=== PATIENT | female | born 1955 | race Caucasian/White ===

== ENCOUNTER → 2016-04-11 | Outpatient (CLI) | payer BC ==
[~2016-04-11] MED LIST: ASPI1TAB PO; BIOT10005 PO; CIPR500T89 PO; FLAG250T PO; VITA-130 PO; VITA200T4 PO; VITMTA PO
[2016-04-11 17:40] LABS: ANION GAP 8 MEQ/L (8-16); BLOOD UREA NITROGEN 13 MG/DL (7-18); CALCIUM LEVEL 9.3 MG/DL (8.8-10.2); CARBON DIOXIDE LEVEL 30 MEQ/L (21-32); CHLORIDE LEVEL 104 MEQ/L (98-107); CREATININE FOR GFR 0.73 MG/DL (0.55-1.02); GLOMERULAR FILTRATION RATE > 60.0 (>45); GLUCOSE, FASTING 92 MG/DL (80-110); POTASSIUM SERUM 4.1 MEQ/L (3.5-5.1); SODIUM LEVEL 142 MEQ/L (136-145)
== END ==
LOC: M WUC 12:14
PROVIDERS: ATTEND Physician Assistant
DX: I10 Essential (primary) hypertension (principal)

== ENCOUNTER → 2016-09-29 | Outpatient (CLI) | payer BC ==
[~2016-09-29] MED LIST changes: -BIOT10005 PO; +BIOT10008 PO; +CIPR-249 PO; -CIPR500T89 PO; -VITA-130 PO; +VITA500T PO
[2016-09-29 10:26] LABS: ANION GAP 7 MEQ/L (8-16); BLOOD UREA NITROGEN 13 MG/DL (7-18); CALCIUM LEVEL 9.3 MG/DL (8.8-10.2); CARBON DIOXIDE LEVEL 28 MEQ/L (21-32); CHLORIDE LEVEL 108 MEQ/L (98-107); CHOLESTEROL LEVEL 231 MG/DL (<200); CREATININE FOR GFR 0.65 MG/DL (0.55-1.02); FREE T4 0.98 NG/DL (0.76-1.46); GLOMERULAR FILTRATION RATE > 60.0 (>45); GLUCOSE, FASTING 93 MG/DL (80-110); SODIUM LEVEL 143 MEQ/L (136-145); TRIGLYCERIDES LEVEL 40 MG/DL (<150)
== END ==
LOC: M WUC 08:19
PROVIDERS: ATTEND Family Medicine
DX: I10 Essential (primary) hypertension (principal); R63.5 Abnormal weight gain

== ENCOUNTER → 2017-01-13 | Outpatient (CLI) | payer BC ==
[2017-01-14 15:10] LABS: Lyme Disease IgG/IgM Antibodie <0.91 ISR (0.00-0.90); Lyme Disease IgM Ab Quantitati <0.80 index (0.00-0.79)
== END ==
LOC: M WUC 09:57
DX: Z13.89 Encounter for screening for other disorder (principal); W57.XXXA Bitten or stung by nonvenomous insect and other nonvenomous arthropods, initial encounter
CPT/HCPCS: 36415

== ENCOUNTER → 2018-06-20 | Outpatient (CLI) | payer BC ==
[~2018-06-20] MED LIST changes: -ASPI1TAB PO; +ASPI81TA26 PO
[2018-06-20 12:32] LABS: BASO % 0.7 % (0.0-1.0); EOS # 0.2 10^3/uL (0.0-0.50); EOS % 3.1 % (0.0-3.0); HEMOGLOBIN 14.7 g/dl (12.0-15.5); LYMPH # 1.6 10^3/uL (1.5-4.5); LYMPH % 29.2 % (24.0-44.0); MEAN CORPUSCULAR HEMOGLOBIN 31.6 pg (27.0-33.0); MEAN CORPUSCULAR HGB CONC 34.2 g/dl (32.0-36.5); MEAN CORPUSCULAR VOLUME 92.5 fl (80.0-96.0); MONO # 0.4 10^3/uL (0.0-0.8); MONO % 7.8 % (0.0-5.0); NEUTROPHILS # 3.2 10^3/uL (1.8-7.7); NEUTROPHILS % 58.8 % (36.0-66.0); PLATELET COUNT, AUTOMATED 276 10^3/uL (150-450); RED BLOOD COUNT 4.65 10^6/uL (4.00-5.40); WHITE BLOOD COUNT 5.4 10^3/uL (4.0-10.0)
[2018-06-20 12:46] LABS: ALBUMIN 4.1 GM/DL (3.2-5.2); ALT/SGPT 23 U/L (12-78); BILIRUBIN,TOTAL 0.5 MG/DL (0.2-1.0); BLOOD UREA NITROGEN 12 MG/DL (7-18); CALCIUM LEVEL 9.2 MG/DL (8.8-10.2); CARBON DIOXIDE LEVEL 28 MEQ/L (21-32); CHLORIDE LEVEL 109 MEQ/L (98-107); CHOLESTEROL LEVEL 271 MG/DL (<200); CHOLESTEROL RISK RATIO 3.304 (<5); FREE T4 0.96 NG/DL (0.76-1.46); GLOMERULAR FILTRATION RATE > 60.0 (>45); GLUCOSE, FASTING 103 MG/DL (70-100); HDL CHOLESTEROL 82 MG/DL (>40); LDL CHOLESTEROL 174 MG/DL (<100); NON-HDL-C 189 MG/DL; POTASSIUM SERUM 4.1 MEQ/L (3.5-5.1); SODIUM LEVEL 142 MEQ/L (136-145); TOTAL PROTEIN 6.5 GM/DL (6.4-8.2); TRIGLYCERIDES LEVEL 73 MG/DL (<150)
== END ==
LOC: M WUC 08:37
PROVIDERS: ATTEND Physician Assistant
DX: E78.00 Pure hypercholesterolemia, unspecified (principal); I25.10 Atherosclerotic heart disease of native coronary artery without angina pectoris